=== PATIENT | male | born 1995 | race Caucasian/White ===

== ENCOUNTER 2019-11-10 23:43 | Emergency (ER) | payer OTHER ==
[~2019-11-10] VITALS: Ht 198.1 cm; Wt 95.3 kg
[2019-11-11 00:28] VITALS: BP 106/66
== END 2019-11-11 02:00 | disposition home or self-care (01) ==
LOC: ER 23:43
DX: S62.623A Displaced fracture of middle phalanx of left middle finger, initial encounter for closed fracture (principal); S63.297A Dislocation of distal interphalangeal joint of left little finger, initial encounter; S80.811A Abrasion, right lower leg, initial encounter; W22.8XXA Striking against or struck by other objects, initial encounter; Y93.64 Activity, baseball; Y92.89 Other specified places as the place of occurrence of the external cause; Y99.9 Unspecified external cause status

== ENCOUNTER 2019-11-21 23:46 | Emergency (ER) | payer OTHER ==
[~2019-11-21] VITALS: Ht 198.1 cm; Wt 95.3 kg
[2019-11-21 23:46] VITALS: BP 128/84
== END 2019-11-22 01:13 | disposition home or self-care (01) ==
LOC: ER 23:46
DX: S61.210A Laceration without foreign body of right index finger without damage to nail, initial encounter (principal); F17.210 Nicotine dependence, cigarettes, uncomplicated; Z88.8 Allergy status to other drugs, medicaments and biological substances; W45.8XXA Other foreign body or object entering through skin, initial encounter; Y93.K1 Activity, walking an animal; Y92.89 Other specified places as the place of occurrence of the external cause; Y99.8 Other external cause status